=== PATIENT | female | born 1935 | race Caucasian/White ===

== ENCOUNTER 2016-05-20 05:15 | Inpatient (IN) | payer OTHER ==
[2016-05-05 13:28] LABS: HEMATOCRIT 39.5 % (37.0-47.0); HEMOGLOBIN 13.3 gm/dL (12.0-15.0); MCH 32.2 pg (26.0-34.0); MCHC 33.7 % (28.0-37.0); MCV 95.8 fL (80.0-100.0); RBC 4.12 mil/uL (4.20-5.00); RDW 13.9 % (10.5-14.5); URINE BILIRUBIN NEGATIVE (Negative); URINE BLOOD NEGATIVE (Negative); URINE COLOR YELLOW; URINE GLUCOSE-RANDOM* NEGATIVE (Negative); URINE KETONES NEGATIVE (Negative); URINE LEUKOCYTES-REFLEX 3+ (Negative); URINE PROTEIN (DIPSTICK) NEGATIVE (Negative); URINE SPECIFIC GRAVITY 1.015 (1.003-1.035); URINE UROBILINOGEN 0.2 E.U./dl (0.2-1.0); WBC 7.4 thou/uL (4.0-11.0)
[2016-05-05 13:35] LABS: SQUAMOUS 0-3 Few /LPF (0-3)
[2016-05-05 13:36] LABS: CASTS None Seen /LPF (None Seen); URINE RBC None Seen /HPF (0-2)
[2016-05-05 13:37] LABS: CRYSTALS None Seen /LPF (None Seen)
[2016-05-05 13:38] LABS: INR 1.1
[2016-05-05 13:40] LABS: ALBUMIN 3.6 g/dL (3.4-5.0); CALCIUM 9.6 mg/dL (8.5-10.1); CREATININE 0.9 mg/dL (0.6-1.3); POTASSIUM 4.5 mmol/L (3.5-5.1)
[~2016-05-20] VITALS: Ht 149.9 cm; Wt 68.0 kg
[2016-05-20] VITALS (11 sets, daily range): BP systolic 106–169; BP diastolic 50–77
--- NOTE | ~2016-05-20 | D ---
[facility] [place] [address] [address] [place] [address] DISCHARGE SUMMARY Name: POONAM CARTY Room #: 537-P [facility] IN M.R.#: [id number] Admission: 05/20/16 Attend Phys: Beltran Anthony MD Discharge: 05/21/16 Date of : 33 Report #: [id number] THIS REPORT FOR: //name// CC: Nnamdi Anthony DATE OF SERVICE: 05/21/2016 ADMISSION DIAGNOSIS: Right knee osteoarthritis. DISCHARGE DISGNOSIS: Right knee osteoarthritis. PROCEDURE: The patient underwent right total knee arthroplasty on the day of admission. CONSULTATIONS: Include physical therapy. HISTORY OF PRESENT ILLNESS: The patient is an 80-year-old female with severe right knee osteoarthritis. She had failed conservative treatments for this and elected to undergo right total knee arthroplasty. HOSPITAL COURSE: She was admitted and underwent the above named procedure, tolerated this procedure well, and went to the floor postoperatively. Postoperative course relatively benign. She was tolerating PT well and her pain was controlled with p.o. pain medication. On postop day #1, hemoglobin was 10.3 and stable. DISCHARGE DISPOSITION: Home. INSTRUCTIONS: She is to follow up with me in 2 weeks. She is to have her Aquacel dressing in place. She is to be on an aspirin 325 mg p.o. b.i.d. for DVT prophylaxis. She was given prescriptions for Nelson 5, as well as MS Contin 15 mg for pain control. If she has any questions or concerns, she is to call or come to the emergency room for my evaluation. <ELECTRONICALLY SIGNED> By: Beltran Anthony MD 05/22/16 0742 1234 1624 Beltran Anthony MD /nt
--- NOTE | ~2016-05-20 | H ---
[facility] [address] [address] HISTORY AND PHYSICAL Name: MACHELLEPOONAM MARTINEZETTE Room #: 537-P [facility] IN M.R.#: [id number] Admission: 05/20/16 Attend Phys: Beltran Anthony MD Discharge: 05/21/16 Date of : 33 Report #: [id number] THIS REPORT FOR: //name// For History and Physical, please see office documentation/handwritten note in the patient's medical record. <ELECTRONICALLY SIGNED> By: Beltran Anthony MD 05/30/16 1256 1429 Beltran Anthony MD /
--- NOTE | ~2016-05-20 | EKG ---
[address] [address] ELECTROCARDIOGRAM REPORT Name: POONAM CARTY Room #: PRE IN ..#: [id number] Admission: Attend Phys: Beltran Anthony MD Discharge: Date of : 33 Report #: [id number] THIS REPORT FOR: //name// [facility] Test Date: 2016-05-05 Test Time: 13:08:58 Pat Name: POONAM CARTY Department: Room: Gender: F Magnetic Doctor: Nas BLANKENSHIP : 1935 Requested By: Beltran Anthony Order Number: [id number] MD: Jersey Velasco Measurements Intervals [place] Rate: 54 P: 62 GA: 175 QRS: 34 QRSD: 92 T: 25 QT: 422 QTc: 400 Interpretive Statements Sinus bradycardia Otherwise no significant abnormality No previous ECG available for comparison Electronically Signed On 05-06-2016 8:17:08 [employer] by Jersey Velasco [email or web address] <ELECTRONICALLY SIGNED> By: Jersey Velasco MD, [facility] 05/06/16 0817 1308 1308 Jersey Velasco MD, FACC /EPI
--- NOTE | ~2016-05-20 | O ---
[facility] [place] [address] [address] [place] [address] OPERATIVE REPORT Name: POONAM CARTY Room #: 537-P [facility] IN M.R.#: [id number] Admission: 05/20/16 Attend Phys: Beltran Anthony MD Discharge: 05/21/16 Date of : 33 Report #: [id number] THIS REPORT FOR: //name// CC: Nnamdi Kandi Beltran Anthony DATE OF SERVICE: 05/20/2016 PREOPERATIVE DIAGNOSIS: Right knee osteoarthritis. POSTOPERATIVE DIAGNOSIS: Right knee osteoarthritis. PROCEDURE: Right total knee arthroplasty. SURGEON: Beltran Anthony MD. LEARNING COACH: Hetal Hernandez PA-C. ANESTHESIA: General with an adductor canal block. IMPLANTS: A Pelayo [employer] Nephew size 5 Legion cobalt chrome posterior stabilized femur, size 4 tibia, size 32 patella and size 9 polyethylene. TOURNIQUET TIME: 53 minutes. ESTIMATED BLOOD LOSS: 50 mL. COMPLICATIONS: None. SPECIMENS: None. CONDITION UPON LEAVING OPERATING ROOM: Stable. INDICATIONS FOR PROCEDURE: The patient is an 80-year-old female who has severe right knee osteoarthritis. She had failed conservative treatment for this and went for right total knee arthroplasty. DESCRIPTION OF PROCEDURE: Risks, benefits, alternatives, complications were discussed in detail with the patient including but not limited to risk of anesthesia, risk of damage to nerves, arteries, blood vessels, risk for infection, bleeding, risk for continued knee pain and need for reoperation. Informed consent was obtained from the patient. Left knee was appropriately marked in the preoperative holding area. IV Ancef was given for preoperative antibiotics. She was brought to the operating room and placed in supine position on operating room table. Adductor canal block was previously placed by Anesthesia. Tourniquet was placed on the right thigh. Right lower extremity [address] [address] OPERATIVE REPORT Name: POONAM CARTY Room #: 537-P [facility] IN M.R.#: [id number] Admission: 05/20/16 Attend Phys: Beltran Anthony MD Discharge: 05/21/16 Date of : 34 Report #: [id number] was prepped and draped in normal sterile fashion. Timeout was performed properly identifying the patient and procedure as well as the instrumentation. All in the operating room were in agreement. Right lower extremity was exsanguinated, tourniquet was inflated. Tourniquet time was 53 minutes. Standard midline approach to the knee was made with 10 blade through the skin. Dissection was taken down sharply to the fascia and deep flaps were developed medially and laterally. A fresh 10 blade was used to make a medial parapatellar arthrotomy and the knee was inspected. There was extensive osteoarthritic change of the knee. Anterior horns of the menisci were removed sharply. ACL and PCL were removed sharply. Drill was used to gain access to the canal of the femur and intramedullary alignment was used. A distal femoral cutting block was pinned in place and distal femoral cut was made. The femur was sized, found to be a size 5. The size 5, 4-in-1 cutting block was placed and anterior, posterior and chamfer cuts were made. After this, attention was turned to the tibia. Drill was used to gain access to the canal of the tibia and resection was based off the lateral plateau. Tibial resection was made. Posterior osteophytes were removed from the femur and flexion and extension gaps were checked and found to be equal. Tibia was sized, found to be a size 4. The size 4 tibial trial was placed and the size 5 femoral trial was placed, box cut was made and a size 9 polyethylene trial was placed. Knee was taken through range of motion, found to be stable, found to have good balance in flexion and extension both medially and laterally, 9 mm was taken off the posterior surface of the patella and a size 32 patellar trial button was placed. Knee was taken through range of motion, found to have good patellar tracking and stability. Trial components were all removed. Bony ends were thoroughly irrigated with normal saline and a final size 4 tibia, size 5 Legion cobalt chrome femur and a 32 patella were cemented in place using standard cementation techniques. After the cement cured, the tourniquet was deflated. Hemostasis was obtained with Bovie cautery. The knee was injected with a periarticular injection consisted of morphine, ropivacaine, Toradol and epinephrine. A final size 9 polyethylene was placed. The fascia was closed with 0 Vicryl, skin was closed with 2-0 Vicryl, skin ning, soft dressing of Adaptic, 4 x 4, Webril, Nickolas wrap were applied. The patient tolerated this procedure well and went to the recovery room under care of anesthesia postoperatively. <ELECTRONICALLY SIGNED> By: Beltran Anthony MD 05/22/16 0742 1133 1216 Beltran Anthony MD /nt
[~2016-05-20 05:15] MED LIST: ALEVE220 MG PO; ASPIR 8181 MG PO; AZO STANDARD95 MG PO; CALCIUM 500 +1 EAC5 PO; FISH OIL 1,001000 M2 PO; MULTIVITAMINS PO; TIMOPTIC2.5 M1 OPHTHALMIC; TUMS PO; VOLTAREN GEL 1100 G2 TOP
[2016-05-21 03:36] VITALS: BP 117/44
[2016-05-21 04:07] LABS: HEMATOCRIT 30.6 % (37.0-47.0); HEMOGLOBIN 10.3 gm/dL (12.0-15.0); MCH 32.2 pg (26.0-34.0); MCHC 33.5 % (28.0-37.0); MCV 96.1 fL (80.0-100.0); RBC 3.19 mil/uL (4.20-5.00); RDW 14.1 % (10.5-14.5); WBC 7.9 thou/uL (4.0-11.0)
[2016-05-21 07:42] VITALS: BP 114/46
[2016-05-21 10:13] VITALS: BP 114/46
[2016-05-21] MEDS ORDERED: MS CONTIN15 MG PO (12:30)
[2016-05-21] MEDS ORDERED: CVS BUFFERED A325 MG PO (12:30)
[2016-05-21] MEDS ORDERED: HYDROCODON-ACE1 EAC7 PO (12:30)
[2016-05-21 12:45] VITALS: BP 114/46
[2016-05-21 13:49] VITALS: BP 114/46
[2016-05-21 14:51] VITALS: BP 114/46
== END 2016-05-21 14:52 | disposition home or self-care (01) | DRG 470 ==
LOC: PRE → TBA 05:15 → 5S 05:15 → PRE 09:29 → 5S 13:49 → PRE 15:54 → 5S 05-21 14:52
PROVIDERS: Orthopaedic Surgery
PROC: 0SRC0J9 Replacement of Right Knee Joint with Synthetic Substitute, Cemented, Open Approach (ICD-10-PCS; principal; 2016-05-20)
DX: M17.11 Unilateral primary osteoarthritis, right knee (principal); M17.12 Unilateral primary osteoarthritis, left knee; Z90.710 Acquired absence of both cervix and uterus; Z90.722 Acquired absence of ovaries, bilateral; Z82.49 Family history of ischemic heart disease and other diseases of the circulatory system; Z88.6 Allergy status to analgesic agent
CPT/HCPCS: 10785; 50010; 50101; 50415; 50612; 50954; 51130; 51225; 51412; 51771; 53078; 53363; 56528; 57095; 62110; 62900; 64037; 70005

== ENCOUNTER → 2016-10-29 | Outpatient (CLI) | payer OTHER ==
[~2016-10-29] MED LIST changes: +CVS BUFFERED A325 MG PO; +HYDROCODON-ACE1 EAC7 PO; +MS CONTIN15 MG PO
== END ==
LOC: RAD 14:53
DX: J18.9 Pneumonia, unspecified organism (principal)

== ENCOUNTER → 2017-07-15 | Outpatient (CLI) | payer OTHER ==
[~2017-07-15] MED LIST changes: +PEPCID20 MG PO; +PREDNISONE 20 M20 MG PO
== END ==
LOC: RAD 09:38
DX: K21.9 Gastro-esophageal reflux disease without esophagitis (principal); Q39.6 Congenital diverticulum of esophagus; K44.9 Diaphragmatic hernia without obstruction or gangrene; J18.9 Pneumonia, unspecified organism

== ENCOUNTER 2017-07-25 09:21 | Emergency (ER) | payer OTHER ==
[~2017-07-25] VITALS: Ht 147.3 cm; Wt 68.0 kg
[~2017-07-25 09:21] MED LIST changes: -PEPCID20 MG PO; -PREDNISONE 20 M20 MG PO
[2017-07-25] MEDS ORDERED: PREDNISONE 20 M20 MG PO (11:02)
[2017-07-25] MEDS ORDERED: PEPCID20 MG PO (11:02)
[2017-07-25 11:47] VITALS: BP 142/84
== END 2017-07-25 12:15 | disposition home or self-care (01) ==
LOC: ER 09:21
DX: L50.0 Allergic urticaria (principal); K21.9 Gastro-esophageal reflux disease without esophagitis; Z87.891 Personal history of nicotine dependence; Z88.6 Allergy status to analgesic agent

== ENCOUNTER → 2020-07-09 | Outpatient (CLI) | payer OTHER ==
[~2020-07-09] MED LIST changes: +PEPCID20 MG PO; +PREDNISONE 20 M20 MG PO
== END ==
LOC: ULTRA 10:42
PROVIDERS: ATTEND Internal Medicine
DX: G45.9 Transient cerebral ischemic attack, unspecified (principal); R20.0 Anesthesia of skin